=== PATIENT | male | born 1995 | race Caucasian/White ===

== ENCOUNTER 2016-08-06 11:04 | Emergency (ER) | payer SELFPAY ==
[~2016-08-06] VITALS: Ht 185.4 cm; Wt 97.0 kg
[2016-08-06 11:05] VITALS: BP 127/71; PULSE 103; RESP 15; TEMP 99.4; O2SAT 99
--- NOTE | 2016-08-06 11:11 | PD ---
HPI . nausea, vomiting and diarrhea for 1 day Chief Complaint: GI Complaint Time Seen by Provider: 11:11 Travel History International Travel<30 days: No Contact w/Intl Traveler<30days: No Traveled to known affect area: No History of Present Illness HPI 21-year-old male with history of migraines here with complaints of diarrhea, nausea and vomiting for the past day. She tells me that he was [place] the [employer] [place] and ate food off the truck. Immediately after he developed upset stomach, diarrhea nausea and vomiting. He says that he has had 7 watery stools this morning alone and 4 episodes of vomiting. He denies any abdominal pain. He tells me he thinks he may have had a fever and chills. He never checked his temperature with a thermometer. He is accompanied by his girlfriend whose name is [facility] Past Medical History Migraines: Yes Social History Alcohol Use: Yes Tobacco Use: No Substance Use: No Allergies-Medications (Allergen,Severity, Reaction): Coded Allergies: No Known Allergies (Unverified , 08/06/16) Reported Meds & Prescriptions Reported Meds & Active Scripts Active Zofran Odt (Ondansetron Odt) 4 Mg Tab 4 Mg SL Q8HR PRN Review of Systems General / Constitutional: Positive: Fever, Chills Eyes: No: Visual changes HENT: No: Headaches Cardiovascular: No: Chest Pain or Discomfort Respiratory: No: Shortness of Breath Gastrointestinal: Positive: Nausea, Vomiting, Diarrhea, No: Abdominal Pain, Hematemesis, Hematochezia, Constipation Genitourinary: No: Dysuria Musculoskeletal: No: Pain Skin: No Rash Neurologic: No: Weakness Psychiatric: No: Depression Endocrine: No: Polydipsia Hematologic/Lymphatic: No: Easy Bruising Physical Exam Narrative GENERAL: AAO x 3, no acute distress, Well-nourished, well-developed patient. comfortable SKIN: Warm and dry. No visible rashes or bruising. normal skin turgor HEAD: Normocephalic and atraumatic. EYES: No scleral icterus. No injection or drainage. ENT: No nasal drainage noted. Mucous membranes pink. Airway patent. slightly dry mucous membranes otherwise normal oropharynx NECK: Supple, trachea midline. No JVD. no lymphadenopathy CARDIOVASCULAR: Regular rate and rhythm without murmurs, gallops, or rubs. RESPIRATORY: Breath sounds equal bilaterally. No accessory muscle use. No rhonchi or rales. GASTROINTESTINAL: Abdomen soft, non-tender, nondistended. normoactive bowel sounds. nontender throughout, no rebound of guarding, negative McBurney's point EXTREMITIES: No cyanosis or edema. BACK: Nontender without obvious deformity. No CVA tenderness. PSYCH: AAO x 3, normal affect. Data Data Last Documented VS Vital Signs Date Time Temp Pulse Resp B/P Pulse Ox O2 Delivery O2 Flow Rate FiO2 08/06/16 11:11 16 08/06/16 11:05 99.4 103 127/71 99 Orders Sodium Chlor 0.9% 1000 Ml Inj (Ns 1000 M (08/06/16 11:15) Ondansetron Inj (Zofran Inj) (08/06/16 11:15) Complete Blood Count With Diff (08/06/16 11:15) Comprehensive Metabolic Panel (08/06/16 11:15) Iv Access Insert/Monitor (08/06/16 11:15) NPO (08/06/16 11:15) Labs Laboratory Tests Test 08/06/16 11:25 White Blood Count 7.4 TH/MM3 Red Blood Count 5.48 MIL/MM3 Hemoglobin 15.7 GM/DL Hematocrit 46.5 % Mean Corpuscular Volume 84.8 FL Mean Corpuscular Hemoglobin 28.7 PG Mean Corpuscular Hemoglobin 33.8 % Concent Red Cell Distribution Width 12.3 % Platelet Count 197 TH/MM3 Mean Platelet Volume 8.7 FL Neutrophils (%) (Auto) 90.1 % Lymphocytes (%) (Auto) 3.3 % Monocytes (%) (Auto) 6.1 % Eosinophils (%) (Auto) 0.4 % Basophils (%) (Auto) 0.1 % Neutrophils # (Auto) 6.6 TH/MM3 Lymphocytes # (Auto) 0.2 TH/MM3 Monocytes # (Auto) 0.4 TH/MM3 Eosinophils # (Auto) 0.0 TH/MM3 Basophils # (Auto) 0.0 TH/MM3 CBC Comment DIFF FINAL Differential Comment Sodium Level 137 MEQ/L Potassium Level 4.4 MEQ/L Chloride Level 103 MEQ/L Carbon Dioxide Level 25.6 MEQ/L Anion Gap 8 MEQ/L Blood Urea Nitrogen 15 MG/DL Creatinine 1.29 MG/DL Estimat Glomerular Filtration 70 ML/MIN Rate Random Glucose 125 MG/DL Calcium Level 9.3 MG/DL Total Bilirubin 1.0 MG/DL Aspartate Amino Transf 31 U/L (AST/SGOT) Alanine Aminotransferase 44 U/L (ALT/SGPT) Alkaline Phosphatase 67 U/L Total Protein 8.1 GM/DL Albumin 4.5 GM/DL MDM Medical Decision Making Medical Screen Exam Complete: Yes Emergency Medical Condition: Yes Medical Record Reviewed: Yes Differential Diagnosis gastroenteritis, food poisoning, less likely colitis Narrative Course This is a 21-year-old male here presenting with GI complaints. It appears that he has a GI bug versus food poisoning. He does have some slightly dry mucous membranes, therefore I will go ahead and administer a liter normal saline. I provided him with some Zofran. I ordered a CBC and CMP just to make sure his electrolytes are normal and he does not have elevated white count. Labs reviewed: no gross abn. If workup is negative, he will be discharged home after his liter of fluids with Zofran for nausea. I've explained to him that this is more than likely a self-limiting case. Patient verbalized understanding of instructions, questions were answered, and thanked me for their care. I advised them if their condition worsens, please return to the nearest emergency room for further care. Diagnosis Primary Impression: Viral intestinal infection Patient Instructions: Gastroenteritis (ED), General Instructions Additional Instructions: Try a bland diet including bananas, apples, toast, rice. Slowly advance over the next 1-2 days. Stay hydrated. Return to the nearest emergency department if you develop sudden onset of abdominal pain or worsening of your condition. Med/Other Pt SpecificInfo: Prescription(s) given Scripts Ondansetron Odt (Zofran Odt)4 Mg Tab4 Mg SL Q8HR PRN (Nausea/Vomiting) #15 TAB Ref 0 Prov:Grace Seth MD 08/06/16 Disposition: 01 DISCHARGE HOME Condition: Stable Deana Stanley August 06, 2016 11:11
[2016-08-06] MEDS ORDERED: SODIUM CHLOR 0.9% 1000 ML INJ 1,000 ML IV ONE (11:15)
[2016-08-06] MEDS ORDERED: ONDANSETRON HCL 4 MG/2 ML VIAL IV PUSH ONE (11:15)
[2016-08-06 11:54] LABS: AUTOMATED NEUTROPHIL # 6.6 TH/MM3 (1.8-7.7); BASOPHIL % 0.1 % (0.0-2.0); EOSINOPHIL % 0.4 % (0.0-4.0); HEMATOCRIT 46.5 % (39.0-51.0); HEMO FLAGS DIFF FINAL; LYMPH % 3.3 % (9.0-44.0); LYMPHOCYTE # 0.2 TH/MM3 (1.0-4.8); MEAN CELL VOLUME 84.8 FL (80.0-100.0); MEAN CORPUSCULAR HEMOGLOBIN 28.7 PG (27.0-34.0); MEAN CORPUSCULAR HGB CONC 33.8 % (32.0-36.0); MONO % 6.1 % (0.0-8.0); NEUT % 90.1 % (16.0-70.0); PLATELET COUNT 197 TH/MM3 (150-450); RED BLOOD COUNT 5.48 MIL/MM3 (4.50-5.90); RED CELL DISTRIBUTION WIDTH 12.3 % (11.6-17.2); WHITE BLOOD COUNT 7.4 TH/MM3 (4.0-11.0)
[2016-08-06 12:22] LABS: ANION GAP 8 MEQ/L (5-15); AST (GOT) 31 U/L (15-37); BICARBONATE 25.6 MEQ/L (21.0-32.0); BLOOD UREA NITROGEN 15 MG/DL (7-18); CHLORIDE 103 MEQ/L (98-107); GLOMERULAR FILTRATION RATE 70 ML/MIN (>89); POTASSIUM 4.4 MEQ/L (3.5-5.1); SODIUM (NA) 137 MEQ/L (136-145)
[2016-08-06 12:25] LABS: ALKALINE PHOSPHATASE 67 U/L (45-117); ALT (GPT) 44 U/L (12-78)
[2016-08-06] MEDS ORDERED: ZOFR4TAB3 SL (12:45)
== END 2016-08-06 12:56 | disposition home or self-care (01) ==
LOC: NEPD 11:04
DX: A08.4 Viral intestinal infection, unspecified (principal); Z86.69 Personal history of other diseases of the nervous system and sense organs
CPT/HCPCS: 80053; 85025; 96361; 96374; 99284; J2405; J7030